=== PATIENT | male | born 1995 | race Caucasian/White ===

== ENCOUNTER 2018-10-30 18:12 | Emergency (ER) | payer OTHER ==
[2018-10-30] MEDS: HYDROCODONE/APAP (10/325) TAB PO (18:49)
== END 2018-10-30 20:20 | disposition home or self-care (01) ==
LOC: FTE 18:12
DX: S42.342A Displaced spiral fracture of shaft of humerus, left arm, initial encounter for closed fracture (principal); W01.198A Fall on same level from slipping, tripping and stumbling with subsequent striking against other object, initial encounter; Y92.9 Unspecified place or not applicable
CPT/HCPCS: 29105; 73060; 73080-LT; 73090; 99283-25

== ENCOUNTER 2018-11-08 15:22 | Observation (INO) | payer OTHER ==
[~2018-11-08 15:22] MED LIST: SEVOFLURANE 15 MIN
[2018-11-08 16:17] LABS: ADD MAN DIFF? NO
[2018-11-08 16:22] LABS: BASOPHILS % 0.5 % (0.0-2.0); EOSINOPHILS # 0.1 10^3/ul (0.0-0.5); EOSINOPHILS % 0.9 % (0.0-7.0); HEMATOCRIT 45.4 % (42.0-52.0); HEMOGLOBIN 14.3 g/dl (14.0-18.0); LYMPHOCYTES # 1.9 10^3/ul (0.8-2.9); LYMPHOCYTES % 21.1 % (15.0-51.0); MEAN CORPUSCULAR HEMOGLOBIN 20.4 pg (29.0-33.0); MEAN CORPUSCULAR HGB CONC 31.5 g/dl (32.0-37.0); MEAN CORPUSCULAR VOLUME 64.7 fl (82.0-101.0); MEAN PLATELET VOLUME 9.5 fl (7.4-10.4); MONOCYTE # 0.8 10^3/ul (0.3-0.9); MONOCYTES % 8.8 % (0.0-11.0); NEUTROPHILS % 68.5 % (39.0-77.0); PLATELET COUNT 372 10^3/UL (140-415); RED BLOOD COUNT 7.02 10^6/ul (4.70-6.10); RED CELL DISTRIBUTION WIDTH 16.5 % (11.5-14.5)
[2018-11-08 16:22] LABS: WHITE BLOOD COUNT 8.8 10^3/ul (4.8-10.8)
[2018-11-08 16:41] LABS: PROTIME 13.3 Sec (11.9-14.9)
[2018-11-08 16:42] LABS: PARTIAL THROMBOPLASTIN TIME 33.5 Sec (23.0-35.0)
[2018-11-08 16:49] LABS: ALANINE AMINOTRANSFERASE 35 IU/L (13-69); ALBUMIN 4.8 g/dl (3.3-4.9); ALBUMIN/GLOBULIN RATIO 1.23; ALKALINE PHOSPHATASE 87 IU/L (42-121); ANION GAP 18 (5-13); ASPARTATE AMINO TRANSFERASE 29 IU/L (15-46); BILIRUBIN,INDIRECT 0.7 mg/dl (0-1.1); BILIRUBIN,TOTAL 0.7 mg/dl (0.2-1.3); BLOOD UREA NITROGEN 17 mg/dl (7-20); CARBON DIOXIDE 25 mmol/L (21-31); CHLORIDE 101 mmol/L (97-110); CREATININE 1.01 mg/dl (0.61-1.24); Estimated GFR > 60 mL/min (>60); GLUCOSE 95 mg/dl (70-220); POTASSIUM 4.2 mmol/L (3.5-5.1); SODIUM 144 mmol/L (135-144); TOTAL PROTEIN 8.7 g/dl (6.1-8.1)
[2018-11-08] MEDS ORDERED: MIDAZOLAM 1 MG/ML 2 ML INJ ×2 (18:24→18:33)
[2018-11-08] MEDS ORDERED: PROPOFOL 20 ML ×2 (18:30→19:15)
[2018-11-08] MEDS ORDERED: SUCCINYLCHOLINE CHLORIDE 100 MG/5 ML SYG IV (18:30)
[2018-11-08] MEDS ORDERED: LIDOCAINE 2% (SDV) 5 ML INJ (18:30)
[2018-11-08] MEDS ORDERED: FENTAnyl 50 MCG/ML VIAL ×2 (18:31→22:12)
[2018-11-08] MEDS ORDERED: ROCURONIUM 50 MG INJ ×3 (19:03→20:52)
[2018-11-08] MEDS ORDERED: CEFAZOLIN 1 GM INJ (19:13)
[2018-11-08] MEDS: POLYMYXIN/BACITRACIN 1L IRRIG (19:19)
[2018-11-08] MEDS ORDERED: MEPERIDINE 25 MG INJ IV (19:30)
[2018-11-08] MEDS ORDERED: ONDANSETRON 4 MG INJ IV (19:30)
[2018-11-08] MEDS ORDERED: FENTAnyl 50 MCG/ML VIAL IV ×3 (19:30)
[2018-11-08] MEDS ORDERED: DIPHENHYDRAMINE 50 MG INJ IV (19:30)
[2018-11-08] MEDS ORDERED: HYDROmorphONE 1 MG/5 ML IV SYRINGE IV ×3 (19:30)
[2018-11-08] MEDS ORDERED: PROCHLORPERAZINE 10 MG INJ IV (19:30)
[2018-11-08] MEDS ORDERED: ONDANSETRON 4 MG INJ (19:45)
[2018-11-08] MEDS ORDERED: FAMOTIDINE 20 MG INJ (19:45)
[2018-11-08] MEDS ORDERED: DEXAMETHASONE 4 MG/ML 1 ML INJ (19:45)
[2018-11-08] MEDS ORDERED: HYDROmorphONE 2 MG/ML SYG ×2 (20:48→22:44)
[2018-11-08] MEDS ORDERED: BUPIVACAINE 0.5%/EPI (SDV) 30 ML INJ (22:02)
[2018-11-08] MEDS ORDERED: NEOSTIGMINE 3 MG/3 ML SYRINGE ×2 (22:07)
[2018-11-08] MEDS ORDERED: GLYCOPYRROLATE 0.4 MG INJ (22:07)
[2018-11-08] MEDS ORDERED: NACL 0.9% 3 ML SYG IV (23:30)
[2018-11-08] MEDS ORDERED: LABETALOL HCL 20MG INJ IV (23:30)
[2018-11-09] MEDS: HYDROmorphONE 1 MG/ML SYG IV ×3 (00:28→11:25)
[2018-11-09] MEDS: CEFAZOLIN 1 GM/50 ML (PMX) 50 ML IVPB ×3 (00:31→16:05)
[2018-11-09] MEDS: ACETAMINOPHEN 1000MG/100ML IV 100 ML IVPB ×3 (01:03→16:05)
[2018-11-09] MEDS: LACTATED RINGER'S 1,000 ML IV ×3 (01:44→13:48)
[2018-11-09] MEDS: ONDANSETRON 4 MG INJ IV (07:51)
[2018-11-09] MEDS: oxyCODONE 5 MG TAB PO ×3 (10:36→17:37)
[2018-11-09] MEDS ORDERED: KETOROLAC 15 MG INJ IV (13:30)
[2018-11-09] MEDS: KETOROLAC 30 MG INJ IV (13:48)
== END 2018-11-09 21:00 | disposition home or self-care (01) ==
LOC: SDS 15:22 → REC 23:18 → MS1 23:48
DX: S42.352A Displaced comminuted fracture of shaft of humerus, left arm, initial encounter for closed fracture (principal); X58.XXXA Exposure to other specified factors, initial encounter; Y93.23 Activity, snow (alpine) (downhill) skiing, snowboarding, sledding, tobogganing and snow tubing
CPT/HCPCS: 24515; 73060; 73080-LT; 80053; 85025; 85610; 85730; 86850; 86900; 86901; G0378